=== PATIENT | female | born 1985 | race Two or more races ===

== ENCOUNTER 2019-11-06 08:12 | Inpatient (IN) | payer OTHER ==
[~2019-11-06] VITALS: Ht 157.5 cm; Wt 93.2 kg
--- NOTE | 2019-11-06 08:18 | NUR ---
PATIENT BROUGHT IN BY [employer] FROM WORK WITH CHIEF COMPLAINT OF HEAD ACHE, LEFT SIDE NUMBNESS/TINGLING IN FACE, ARM AND LEG, FATIGUE STARTIGN AT 730 THIS MORNIGN. NO NEURO DEFICETS NOTED. DENIES RECENT TRAUMA, MAINOR, EFREM, N/V. Addendum: 11/06/19 at 0824 by [email or web address] PATIENT BROUGHT IN BY [employer] FROM WORK WITH CHIEF COMPLAINT OF HEAD ACHE, LEFT SIDE NUMBNESS/TINGLING IN FACE, ARM AND LEG, FATIGUE STARTING AT 730 THIS MORNIGN. NO OTHER NEURO DEFICETS NOTED. DENIES RECENT TRAUMA, CP, EFREM, N/V.
--- NOTE | 2019-11-06 08:31 | NUR ---
AUSTIN GALINDO AT BESIDE FOR EVALUATION. STROKE/NEURO ALERT CALLED
[2019-11-06 08:39] LABS: BASOPHILS # (AUTO) 0.05 x10^3/uL (0-0.1); BASOPHILS % (AUTO) 1 % (0-1); EOSINOPHILS # (AUTO) 0.32 x10^3/uL (0-0.4); EOSINOPHILS % (AUTO) 4 % (1-7); LYMPHOCYTES # (AUTO) 2.57 x10^3/uL (1-3.4); LYMPHOCYTES % (AUTO) 32 % (22-44); MD NO; MEAN CORPUSCULAR HEMOGLOBIN 31.1 pg (27.0-34.8); MEAN CORPUSCULAR HGB CONC 34.8 g/dL (32.4-35.8); MEAN CORPUSCULAR VOLUME 89.3 fL (80-100); MONOCYTES % (AUTO) 4 % (2-9); NEUTROPHILS % (AUTO) 59 % (42-75); PLATELET COUNT 313 x10^3/uL (130-400); RED BLOOD COUNT 4.35 x10^6/uL (3.82-5.3); RED CELL DISTRIBUTION WIDTH 13.7 % (9.6-15.2)
--- NOTE | 2019-11-06 08:44 | NUR ---
BACK FROM CT, NO NEURO CHANGES
[2019-11-06 08:50] LABS: INTERNATIONAL NORMALIZED RATIO 0.87 (0.93-1.1); PROTHROMBIN TIME 9.2 Seconds (9.6-11.5)
[2019-11-06] MEDS ORDERED: SODIUM CHLORIDE FLUSH 10ML SYR IVF ONE (09:00)
--- NOTE | 2019-11-06 09:04 | NUR ---
REPORT FROM SIMRAN MEEKS. URINE COLLECTED VIA STRAIGHT CATH. PROVIDER AT BEDSIDE.
[2019-11-06 09:09] LABS: ALBUMIN 3.6 g/dL (3.4-5.0); ANION GAP 10 mmol/L (5-15); CALCIUM 8.7 mg/dL (8.5-10.1); CHLORIDE 100 mmol/L (98-107); CREATININE 1.03 mg/dL (0.55-1.02)
[2019-11-06 09:12] LABS: ALKALINE PHOSPHATASE 184 U/L (45-117); BILIRUBIN,TOTAL 1.7 mg/dL (0.2-1.0); TOTAL PROTEIN 7.5 g/dL (6.4-8.2)
[2019-11-06 09:14] LABS: ALANINE AMINOTRANSFERASE 95 U/L (12-78); SALICYLATE LEVEL 5.7 mg/dL (2.8-20.0)
[2019-11-06 09:23] LABS: AMPHETAMINE SCREEN, URINE Negative (Negative); BARBITURATE SCREEN, URINE Positive (Negative); BENZODIAZEPINE SCREEN, URINE Negative (Negative); CANNABINOID SCREEN, URINE Negative (Negative); COCAINE SCREEN, URINE Negative (Negative); METHADONE SCREEN, URINE Negative (Negative); MICROSCOPIC AUTO; OPIATE SCREEN, URINE Negative (Negative)
[2019-11-06 09:25] LABS: CULTURE INDICATED? NO
[2019-11-06] MEDS ORDERED: ALTEPLASE 8 MG in SYRINGE 1 EA IVPush ONE (09:30)
[2019-11-06] MEDS ORDERED: ALTEPLASE IV ONE (09:30)
--- NOTE | 2019-11-06 09:35 | NUR ---
BEDSIDE REPORT TO SIMRAN BAI. SECOND IV LINE STARTED IN LAC, CODE NEURO NURSE PAGED BACK TO BEDSIDE. PT FAMILY CALLED AND NOTIFIED PER REQUEST. PT AND ALL BELONGINGS MOVED INTO TRAUMA 3. ATTACHED TO MONITORS.
[2019-11-06] MEDS ORDERED: ONDANSETRON 2MG/ML, 2ML ONE (09:57)
[2019-11-06] MEDS ORDERED: ONDANSETRON 2MG/ML, 2ML IVPush ONE (10:00)
[2019-11-06] MEDS ORDERED: PLEASE ENTER ALLERGIES MC SCH (10:00)
--- NOTE | 2019-11-06 10:00 | NUR ---
DR. REDDY AT BEDSIDE. ORDER PER DR. TOLBERT FOR TPA GIVEN IN EMAR. PT C/O NAUSEA WITH UNILATERAL WEAKNESS TO LEFT LEG, ARM, AND NOT ABLE TO LIFT LEFT EYELID FAR RIGHT. PT'S SPEECH IS SLURRED. RECEIVED REPORT FROM RICHARDSON KHALIL. JOSEE Cm RN, CCU NURSE, AT BEDSIDE HELPING TO SET UP [employer] DOSAGE WITH RICHARDSON KHALIL.
--- NOTE | 2019-11-06 10:06 | NUR ---
[employer] GIVEN PER MD ORDER. TIME OUT DONE PRIOR TO ADMINISTRATION WITH JOSEE Kitchen RN. DR. REDDY AT [facility] DURING ADMINISTRATION.
[2019-11-06] MEDS ORDERED: DEXTROSE 50%, 50ML SYRINGE IVPush PRN (10:30)
[2019-11-06] MEDS ORDERED: ONDANSETRON 2MG/ML, 2ML IVPush PRN (10:30)
[2019-11-06] MEDS ORDERED: POLYETHYLENE GLYCOL 17 GM PACKET PO PRN (10:30)
[2019-11-06] MEDS ORDERED: GABAPENTIN 300 MG CAPSULE PO PRN (10:30)
[2019-11-06] MEDS ORDERED: GLUCAGON 1 MG IM PRN (10:30)
[2019-11-06] MEDS ORDERED: DEXTROSE 4 GM TAB.CHEW PO PRN (10:30)
[2019-11-06] MEDS ORDERED: LABETALOL 5MG/ML, 20ML IV PRN (10:30)
[2019-11-06] MEDS ORDERED: DOCUSATE 100 MG CAPSULE PO PRN (10:30)
--- NOTE | 2019-11-06 10:30 | NUR ---
PT REPORTS CHAVES IS BETTER AT 3/10 FROM 02/21. PLEASES REFER TO TPA NEUROLOGICAL FLOW SHEET FOR NEURO CHECKS.
[2019-11-06] MEDS ORDERED: ASPI1TAB31 PO (10:43)
[2019-11-06] MEDS ORDERED: HYDR25TA6 PO (10:43)
[2019-11-06] MEDS ORDERED: IBUP-1623 PO (10:43)
--- NOTE | 2019-11-06 10:51 | NUR ---
DURING NEURO ASSESSMNET, LEFT AYE ABLE TO OPEN MORE AND HER LEFT HAND GRASP WAS NOTICEABLY STRONGER ALONG WITH HER BEING ABLE TO LIFT HER LEFT LEG HIGHER.
--- NOTE | 2019-11-06 10:54 | NUR ---
NURSE DISTRACTION - US DELAY
[2019-11-06] MEDS ORDERED: POTASSIUM CHLORIDE 20 MEQ TAB.ER.PRT PO ONE (11:00)
--- NOTE | 2019-11-06 11:04 | NUR ---
PT C/O 03/[address] REDDY AWARE. PT TO GET TYLENOL ORDERED PER DR. REDDY ONCE US IS DONE.
[2019-11-06] MEDS ORDERED: POTASSIUM CHLORIDE 20 MEQ TAB.ER.PRT ONE (11:26)
--- NOTE | 2019-11-06 11:29 | NUR ---
PT REFUSED TYLENOL STATING "I DON'T WANT TO TAKE ANY MORE PILLS." CHAVES IS 11/24.
[2019-11-06] MEDS ORDERED: ALTEPLASE 1 MG/ML, 100ML ONE (11:51)
[2019-11-06] MEDS: ACETAMINOPHEN 325 MG TABLET PO PRN ×2 (12:39→17:57)
[2019-11-06] MEDS: INSULIN LISPRO 100 UNITS/ML, PEN SQ-INSULIN SCH ×3 (13:03→21:04)
[2019-11-06] MEDS: SODIUM CHLORIDE 0.9% 1,000 ML IV SCH (13:03)
[2019-11-06] MEDS: SODIUM CHLORIDE FLUSH 10ML SYR IVF SCH (21:04)
[2019-11-06] MEDS: ATORVASTATIN 80 MG TABLET PO SCH (21:04)
[2019-11-07] MEDS: SODIUM CHLORIDE 0.9% 1,000 ML IV SCH (02:16)
[2019-11-07 04:00] VITALS: BP 115/74
[2019-11-07 04:43] LABS: BASOPHILS # (AUTO) 0.06 x10^3/uL (0-0.1); BASOPHILS % (AUTO) 1 % (0-1); EOSINOPHILS # (AUTO) 0.34 x10^3/uL (0-0.4); EOSINOPHILS % (AUTO) 4 % (1-7); LYMPHOCYTES # (AUTO) 2.76 x10^3/uL (1-3.4); LYMPHOCYTES % (AUTO) 35 % (22-44); MD NO; MEAN CORPUSCULAR HEMOGLOBIN 30.4 pg (27.0-34.8); MEAN CORPUSCULAR HGB CONC 33.8 g/dL (32.4-35.8); MEAN CORPUSCULAR VOLUME 90.1 fL (80-100); MONOCYTES # (AUTO) 0.29 x10^3/uL (0.2-0.8); MONOCYTES % (AUTO) 4 % (2-9); NEUTROPHILS # (AUTO) 4.57 x10^3/uL (1.8-6.8); NEUTROPHILS % (AUTO) 57 % (42-75); PLATELET COUNT 290 x10^3/uL (130-400); RED BLOOD COUNT 4.27 x10^6/uL (3.82-5.3); RED CELL DISTRIBUTION WIDTH 13.3 % (9.6-15.2)
[2019-11-07 04:53] LABS: ALBUMIN 3.4 g/dL (3.4-5.0); ANION GAP 5 mmol/L (5-15); CALCIUM 8.6 mg/dL (8.5-10.1); CHLORIDE 107 mmol/L (98-107)
[2019-11-07 05:05] LABS: ALANINE AMINOTRANSFERASE 84 U/L (12-78); ALKALINE PHOSPHATASE 139 U/L (45-117); BILIRUBIN,TOTAL 0.3 mg/dL (0.2-1.0); CHOLESTEROL, TOTAL 253 mg/dL (140-239); CREATININE 0.81 mg/dL (0.55-1.02); HDL CHOL % 11 % (28-40); HDL CHOLESTEROL (DIRECT) 28 mg/dL (40-60); TRIGLYCERIDES 1089 mg/dL (50-200)
[2019-11-07] MEDS: ACETAMINOPHEN 325 MG TABLET PO PRN (08:09)
[2019-11-07] MEDS: INSULIN LISPRO 100 UNITS/ML, PEN SQ-INSULIN SCH ×4 (08:10→21:23)
[2019-11-07] MEDS: SODIUM CHLORIDE FLUSH 10ML SYR IVF SCH ×2 (08:12→21:22)
[2019-11-07] MEDS: LIDODERM REMOVE PATCH NOTE XX SCH (10:53)
[2019-11-07] MEDS: LIDODERM 5% PATCH TD SCH (10:53)
[2019-11-07] MEDS: DIPHENHYDRAMINE 50 MG/ML, 1ML IVPush PRN (14:53)
[2019-11-07] MEDS: KETOROLAC 30 MG/1 ML IVPush PRN (14:53)
[2019-11-07] MEDS: PROCHLORPERAZINE 5 MG/ML, 2ML IVPush PRN (14:53)
[2019-11-07 18:12] VITALS: BP 127/88
[2019-11-07 19:03] VITALS: BP 131/84
[2019-11-07] MEDS: AMITRIPTYLINE 25 MG TABLET PO SCH (21:22)
[2019-11-07] MEDS: ATORVASTATIN 80 MG TABLET PO SCH (21:22)
[2019-11-08 00:54] VITALS: BP 112/67
[2019-11-08 04:06] VITALS: BP 111/72
[2019-11-08 05:34] LABS: BASOPHILS # (AUTO) 0.04 x10^3/uL (0-0.1); BASOPHILS % (AUTO) 1 % (0-1); EOSINOPHILS # (AUTO) 0.37 x10^3/uL (0-0.4); EOSINOPHILS % (AUTO) 5 % (1-7); LYMPHOCYTES # (AUTO) 2.34 x10^3/uL (1-3.4); LYMPHOCYTES % (AUTO) 29 % (22-44); MD NO; MEAN CORPUSCULAR HEMOGLOBIN 30.2 pg (27.0-34.8); MEAN CORPUSCULAR HGB CONC 34.2 g/dL (32.4-35.8); MEAN CORPUSCULAR VOLUME 88.2 fL (80-100); MEAN PLATELET VOLUME 8.3 fL (7.4-10.4); MONOCYTES # (AUTO) 0.33 x10^3/uL (0.2-0.8); MONOCYTES % (AUTO) 4 % (2-9); NEUTROPHILS # (AUTO) 5.06 x10^3/uL (1.8-6.8); NEUTROPHILS % (AUTO) 62 % (42-75); PLATELET COUNT 286 x10^3/uL (130-400); RED BLOOD COUNT 4.19 x10^6/uL (3.82-5.3); RED CELL DISTRIBUTION WIDTH 13.6 % (9.6-15.2)
[2019-11-08 05:39] LABS: ALBUMIN 3.3 g/dL (3.4-5.0); ANION GAP 6 mmol/L (5-15); CALCIUM 8.7 mg/dL (8.5-10.1); CHLORIDE 107 mmol/L (98-107)
[2019-11-08 05:45] LABS: ALANINE AMINOTRANSFERASE 74 U/L (12-78); ALKALINE PHOSPHATASE 142 U/L (45-117); BILIRUBIN,TOTAL 0.4 mg/dL (0.2-1.0); CREATININE 1.06 mg/dL (0.55-1.02); TOTAL PROTEIN 6.9 g/dL (6.4-8.2)
[2019-11-08] MEDS ORDERED: AMIT25TA PO (07:47)
[2019-11-08] MEDS ORDERED: ATOR-2 PO (07:47)
[2019-11-08 07:58] VITALS: BP 120/77
[2019-11-08] MEDS: INSULIN LISPRO 100 UNITS/ML, PEN SQ-INSULIN SCH ×4 (08:09→21:00)
[2019-11-08] MEDS: SODIUM CHLORIDE FLUSH 10ML SYR IVF SCH ×2 (08:10→21:00)
[2019-11-08] MEDS: PROCHLORPERAZINE 5 MG/ML, 2ML IVPush PRN (10:10)
[2019-11-08] MEDS: DIPHENHYDRAMINE 50 MG/ML, 1ML IVPush PRN (10:10)
[2019-11-08] MEDS: KETOROLAC 30 MG/1 ML IVPush PRN (10:10)
[2019-11-08] MEDS ORDERED: SUMATRIPTAN 6MG/0.5ML SQ PRN (11:30)
[2019-11-08] MEDS: VALPROATE SODIUM 500 MG in SODIUM CHLORIDE 0.9% 100 ML IV SCH ×3 (11:39→21:00)
[2019-11-08] MEDS: LIDODERM 5% PATCH TD SCH ×2 (11:40→23:23)
[2019-11-08] MEDS: LIDODERM REMOVE PATCH NOTE XX SCH (11:40)
[2019-11-08 12:38] VITALS: BP 125/80
[2019-11-08 20:42] VITALS: BP 135/83
[2019-11-08] MEDS: ATORVASTATIN 80 MG TABLET PO SCH (21:12)
[2019-11-08] MEDS: AMITRIPTYLINE 25 MG TABLET PO SCH (21:12)
[2019-11-09 00:18] VITALS: BP 123/79
[2019-11-09] MEDS: VALPROATE SODIUM 500 MG in SODIUM CHLORIDE 0.9% 100 ML IV SCH ×2 (03:00→09:33)
[2019-11-09 07:30] VITALS: BP 122/81
[2019-11-09] MEDS: INSULIN LISPRO 100 UNITS/ML, PEN SQ-INSULIN SCH ×2 (08:14→11:00)
[2019-11-09] MEDS: SODIUM CHLORIDE FLUSH 10ML SYR IVF SCH (09:00)
[2019-11-09] MEDS: LIDODERM REMOVE PATCH NOTE XX SCH (11:00)
[2019-11-09] MEDS ORDERED: METF500T PO (11:40)
[2019-11-09] MEDS ORDERED: SUMA100T4 PO (11:40)
== END 2019-11-09 12:45 | disposition home or self-care (01) | DRG 103 ==
LOC: SUATTDRO 10:12 → ED 10:13 → EDIP 10:26 → CCU 11:34 → 4EST 11-07 17:55 → DCLOUNGE 11-09 12:28
PROVIDERS: ADMIT Internal Medicine; ATTEND Internal Medicine
DX: G43.109 Migraine with aura, not intractable, without status migrainosus (principal); E87.1 Hypo-osmolality and hyponatremia; E11.65 Type 2 diabetes mellitus with hyperglycemia; E78.1 Pure hyperglyceridemia; E78.5 Hyperlipidemia, unspecified; E87.6 Hypokalemia; I10 Essential (primary) hypertension; Z90.49 Acquired absence of other specified parts of digestive tract
CPT/HCPCS: 36415; 70450; 70551; 80047; 80053; 80061; 80307; 81001; 82962; 83036; 83735; 84443; 85025; 85610; 85730; 87081; 93005; 93306; 93356; 93880; 96365; 96374; 99291; G0378; J1885; J2405; J2997; 92523-GN; J0780; J1200; J1815; J7030

== ENCOUNTER 2019-11-11 13:19 | Emergency (ER) | payer OTHER ==
[~2019-11-11] VITALS: Ht 160 cm; Wt 91.8 kg
[~2019-11-11 13:19] MED LIST: AMIT25TA PO; ASPI1TAB31 PO; ATOR-2 PO; HYDR25TA6 PO; IBUP-1623 PO; METF500T PO; SUMA100T4 PO
[2019-11-11] MEDS ORDERED: SODIUM CHLORIDE 0.9% 1,000ML IVBOLUS ONE (14:00)
[2019-11-11] MEDS ORDERED: ONDANSETRON 2MG/ML, 2ML IVPush ONE (14:00)
[2019-11-11] MEDS ORDERED: SODIUM CHLORIDE FLUSH 10ML SYR IVF ONE (14:00)
[2019-11-11] MEDS ORDERED: ONDANSETRON 2MG/ML, 2ML ONE (14:06)
[2019-11-11 14:12] LABS: MEAN CORPUSCULAR HGB CONC 33.9 g/dL (32.4-35.8); MEAN CORPUSCULAR VOLUME 88.6 fL (80-100); MEAN PLATELET VOLUME 8.5 fL (7.4-10.4); PLATELET COUNT 377 x10^3/uL (130-400); RED BLOOD COUNT 4.79 x10^6/uL (3.82-5.3); RED CELL DISTRIBUTION WIDTH 13.3 % (9.6-15.2)
--- NOTE | 2019-11-11 14:15 | NUR ---
PT RECENTLY ADMITTED FOR SUSPICION OF STROKE, PT WAS RULED OUT AND WAS TOLD IT WAS A MIGRAIN, PT DC HOME. PT WITH C/O N/V X2 DAYS, UNABLE TO KEEP AND FLUID DOWN, PT STATES SHE PASSED OUT THIS AM. PT TO BP, CARD MONITOR, CONT PULSE OX. ORDERS RECIEVED BY LASHAWN, PIV INITIATED, PT MEDICATED PER MAR
[2019-11-11 14:18] LABS: ALBUMIN 4.1 g/dL (3.4-5.0); ANION GAP 11 mmol/L (5-15); CHLORIDE 101 mmol/L (98-107); CREATININE 1.08 mg/dL (0.55-1.02)
[2019-11-11 14:29] LABS: BASOPHILS # (AUTO) 0.05 x10^3/uL (0-0.1); BASOPHILS % (AUTO) 0 % (0-1); EOSINOPHILS # (AUTO) 0.07 x10^3/uL (0-0.4); EOSINOPHILS % (AUTO) 1 % (1-7); LYMPHOCYTES # (AUTO) 1.57 x10^3/uL (1-3.4); LYMPHOCYTES % (AUTO) 14 % (22-44); MD SCAN; MONOCYTES % (AUTO) 5 % (2-9); NEUTROPHILS # (AUTO) 8.75 x10^3/uL (1.8-6.8); NEUTROPHILS % (AUTO) 80 % (42-75)
[2019-11-11 14:58] VITALS: BP 117/82
--- NOTE | 2019-11-11 14:59 | NUR ---
PT GIVEN JUICE AND CRACKERS FOR PO CHALLENGE. PT TOLERATED WELL. PT NOW STATES SHE IS HAVING BACK PAIN, CLAIMS SHE HIT HER BACK WHEN SHE FELL.
[2019-11-11] MEDS ORDERED: HYDROcodone/APAP 5/325 TABLET ONE (15:12)
[2019-11-11] MEDS ORDERED: IBUPROFEN 600 MG TABLET ONE (15:12)
--- NOTE | 2019-11-11 15:16 | NUR ---
PT MEDICATED PER MAR FOR BACK PAIN
[2019-11-11] MEDS ORDERED: HYDROcodone/APAP 5/325 TABLET PO ONE (15:30)
[2019-11-11] MEDS ORDERED: IBUPROFEN 200 MG TABLET PO ONE (15:30)
== END 2019-11-11 15:24 | disposition home or self-care (01) ==
LOC: ED 15:10
DX: R11.2 Nausea with vomiting, unspecified (principal); E86.0 Dehydration; R55 Syncope and collapse; G89.29 Other chronic pain; I10 Essential (primary) hypertension; E11.9 Type 2 diabetes mellitus without complications; R51 Headache; R42 Dizziness and giddiness
CPT/HCPCS: 36415; 80048; 82040; 82962; 83735; 84703; 85025; 93005; 96361; 96374; 99284; J2405; J7030

== ENCOUNTER 2020-04-14 08:06 | Day surgery (SDC) | payer OTHER ==
[~2020-04-14] VITALS: Ht 162.6 cm; Wt 85.5 kg
[2020-04-14] MEDS ORDERED: CHLORHEXIDINE 15 ML UDC MM ONE (09:30)
[2020-04-14] MEDS ORDERED: LAMO25TA9 PO (09:33)
[2020-04-14] MEDS ORDERED: EREN70AU IM (09:33)
[2020-04-14] MEDS ORDERED: BUPIVACAINE/PF 0.25% ONE (09:53)
[2020-04-14 09:54] VITALS: BP 121/83
[2020-04-14] MEDS ORDERED: EPINEPHRINE 1 MG/ML, 1ML ONE (09:54)
[2020-04-14] MEDS ORDERED: VASOPRESSIN 20 UNIT/ML, 1ML ONE (09:55)
[2020-04-14] MEDS ORDERED: SODIUM CHLORIDE 0.9% 50 ML ONE (09:59)
[2020-04-14 10:05] LABS: HCG UR SG 1.024 (1.003-1.030)
[2020-04-14] MEDS ORDERED: FENTANYL PF 250 MCG/5ML ONE (10:05)
[2020-04-14] MEDS ORDERED: MIDAZOLAM 1 MG/ML, 2ML ONE (10:05)
[2020-04-14] MEDS ORDERED: ONDANSETRON 2MG/ML, 2ML ONE (10:20)
[2020-04-14] MEDS ORDERED: DEXAMETHASONE 4 MG/ML, 1ML ONE (10:20)
[2020-04-14] MEDS ORDERED: PROPOFOL 10 MG/ML, 20ML ONE (10:20)
[2020-04-14] MEDS ORDERED: CEFAZOLIN 1,000 MG ONE (10:20)
[2020-04-14] MEDS ORDERED: LACTATED RINGERS 1,000 ML IV SCH (10:20)
[2020-04-14] MEDS ORDERED: HYDROmorphone 1 MG/ML, 1ML INJ IVPush PRN (10:30)
[2020-04-14] MEDS ORDERED: FENTANYL PF 100 MCG/2ML IV PRN (10:30)
[2020-04-14] MEDS ORDERED: OXYcodone 5 MG/5 ML ORAL.SOL UDC PO PRN (10:30)
[2020-04-14] MEDS ORDERED: MEPERIDINE/PF 25MG/0.5ML IVPush PRN (10:30)
[2020-04-14] MEDS ORDERED: ACETAMINOPHEN 325 MG TABLET PO PRN (10:30)
[2020-04-14] MEDS ORDERED: ONDANSETRON 2MG/ML, 2ML IVPush PRN (10:30)
[2020-04-14] MEDS ORDERED: MEPERIDINE/PF 25MG/ML,1ML ONE (11:39)
[2020-04-14] MEDS ORDERED: ACETAMINOPHEN 650 MG/20.3 ML UDC ONE (11:44)
[2020-04-14] MEDS ORDERED: FENTANYL PF 100 MCG/2ML ONE (11:45)
[2020-04-14] MEDS ORDERED: ACETAMINOPHEN 325 MG TABLET ONE (11:45)
[2020-04-14] MEDS ORDERED: KETOROLAC 30 MG/1 ML IVPush PRN (13:30)
== END 2020-04-14 15:10 | disposition home or self-care (01) ==
LOC: OUT 08:06
PROVIDERS: ATTEND Specialist
DX: D06.0 Carcinoma in situ of endocervix (principal); Z11.59 Encounter for screening for other viral diseases; Z90.49 Acquired absence of other specified parts of digestive tract; E78.5 Hyperlipidemia, unspecified; E11.9 Type 2 diabetes mellitus without complications; J45.909 Unspecified asthma, uncomplicated; G43.109 Migraine with aura, not intractable, without status migrainosus; Z91.013 Allergy to seafood; Z91.018 Allergy to other foods; Z98.890 Other specified postprocedural states; Z79.899 Other long term (current) drug therapy; Z72.89 Other problems related to lifestyle; Z86.73 Personal history of transient ischemic attack (TIA), and cerebral infarction without residual deficits; Z82.49 Family history of ischemic heart disease and other diseases of the circulatory system
CPT/HCPCS: 36415; 57522; 81025; 82962; 87635; 88305; J0171; J0690; J1100; J1885; J2175; J2250; J2405; J2704; J3010; J3490; J7120